=== PATIENT | male | born 1995 | race Caucasian/White ===

== ENCOUNTER 2020-01-16 19:27 | Emergency (ER) | payer OTHER ==
--- NOTE | 2020-01-16 21:25 | ED Physician Documentation ---
History of Present Illness - Stated complaint Stated Complaint: FACIAL LAC - Chief complaint Chief Complaint: Laceration - History obtained from History obtained from: Patient (The patient is a 24-year-old male who presents with laceration to the right eyebrow. Patient reports he was driving a riding lawnmower when he struck his right side of his forehead on a tree. He denies any loss of consciousness denies any head or neck pain no other complaints.) Review of Systems Constitutional: reports: Reviewed and negative Eyes: reports: Reviewed and negative Ears: reports: Reviewed and negative Nose: reports: Reviewed and negative Throat: reports: Reviewed and negative Cardiac: reports: Reviewed and negative Respiratory: reports: Reviewed and negative GI: reports: Reviewed and negative : reports: Reviewed and negative Skin: reports: Laceration (s) Musculoskeletal: reports: Reviewed and negative Neurologic: reports: Reviewed and negative Psychiatric: reports: Reviewed and negative Endocrine: reports: Reviewed and negative Immunocompromised: reports: Reviewed and negative PD PAST MEDICAL HISTORY - Past Medical History Past Medical History: Yes Cardiovascular: None Respiratory: None Neuro: None Endocrine/Autoimmune: None GI: None : None HEENT: None Psych: None Musculoskeletal: None Derm: None - Past Surgical History Past Surgical History: Yes - Allergies Allergies/Adverse Reactions: Allergies Allergy/AdvReac Type Severity Reaction Status Date / Time No Known Drug Allergies Allergy Verified 01/16/20 19:47 - Social History Does the pt smoke?: No Smoking Status: Current every day smoker Does the pt drink ETOH?: Yes - Immunizations Immunizations: TDAP >10years/unknown PD ED PE NORMAL - Vitals Vital signs reviewed: Yes - General General: Alert and oriented X 3, No acute distress, Well developed/nourished - HEENT HEENT: PERRL, Moist mucous membranes - Neck Neck: Supple, no meningeal sign - Cardiac Cardiac: RRR, No murmur, Strong equal pulses - Respiratory Respiratory: Clear bilaterally - Abdomen Abdomen: Normal bowel sounds, Soft, Non tender, Non distended - Derm Derm: Other (Laceration to the right eyebrow x2 first 1 is 2 cmAnd the second 1 is 1 cm.) - Extremities Extremities: No deformity - Neuro Neuro: Alert and oriented X 3 - Psych Psych: Normal mood, Normal affect PD ED PE EXPANDED - HEENT HEENT Visual: 1 - laceration 2 - laceration Results - Vitals Vitals: Vital Signs - 24 hr 01/16/20 01/16/20 19:39 23:36 Temperature 36.6 C Heart Rate 102 H 60 Respiratory 18 16 Rate Blood Pressure 137/79 H 121/60 O2 Saturation 96 100 Oxygen O2 Source Room air Procedures - Laceration (location) Face right Length in cm: 2 Wound type: Linear Neurovascular status: Sensory intact, Motor intact, Vascular intact Anesthesia: Lidocaine 1% with epi, Volume - enter cc (1) Wound Preparation: Irrigated copiously NS, Wound explored Skin layer closure: Nylon, Size #-0 - enter number (5), Sutures - enter # (4) Other: Patient tolerated well, No complications, Neurovascular intact, Dressing applied, Tetanus booster given Complexity: Simple Eyelid right Length in cm: 1 Wound type: Linear Neurovascular status: Sensory intact, Motor intact, Vascular intact Anesthesia: Lidocaine 1% with epi, Volume - enter cc (1) Wound Preparation: Irrigated copiously NS, Wound explored Skin layer closure: Nylon, Size #-0 - enter number (5), Sutures - enter # (2) Other: Patient tolerated well, No complications, Neurovascular intact, Tetanus booster given Complexity: Simple PD MEDICAL DECISION MAKING - ED course Complexity details: considered differential (right eyebrow/forehead laceration. tetanus updated. 2 separate lacerations repaired with good wound edge alignment. no fb identified. wound thouroughly irrigated. ) Departure - Departure Disposition: 01 Home, Self Care Clinical Impression: Laceration of eyebrow, right Qualifiers: Encounter type: initial encounter Qualified Code(s): S01.111A - Laceration without foreign body of right eyelid and periocular area, initial encounter Condition: Stable Instructions: ED Laceration Facial Sutr Tape Follow-Up: Your, doctor [Other] - 01/24/20 Comments: Keep wound clean, dry and protected. Follow-up with your physician for suture removal in 7 to 10 days or return to the emergency department for suture removal. Ice as needed you may take either Tylenol or ibuprofen as needed for pain. Discharge Date/Time: 01/16/20 23:36
[2020-01-16] MEDS ORDERED: BACITRACIN ZINC OINT 1 PACKET TOP STA (22:26)
[2020-01-16] MEDS ORDERED: LIDOCAINE 1%-EPI 1:100000 20 ML MDV SUBQ STA (22:26)
[2020-01-16] MEDS ORDERED: TETANUS/DIPHTHERIA/PERTUSSIS 0.5 ML SYRINGE IM ONE (22:53)
[2020-01-16 23:38] VITALS: BP 121/60
== END 2020-01-16 23:36 | disposition home or self-care (01) ==
LOC: ED 19:27
DX: S01.111A Laceration without foreign body of right eyelid and periocular area, initial encounter (principal); W22.09XA Striking against other stationary object, initial encounter; Y93.H2 Activity, gardening and landscaping; F17.200 Nicotine dependence, unspecified, uncomplicated
CPT/HCPCS: 12013; 90471; 90715; 99283; A9270

== ENCOUNTER 2022-01-26 12:03 | Outpatient (CLI) | payer OTHER ==
--- NOTE | 2022-01-26 15:52 | XRAY Report ---
PROCEDURE: Hip w/Pelvis 2-3V LT INDICATIONS: LEFT HIP PAIN TECHNIQUE: AP pelvis with lateral view(s) of the left hip(s). COMPARISON: None. FINDINGS: Bones: No fractures or dislocations. Pelvic ring appears intact. No suspicious bony lesions. Soft tissues: The visualized bowel gas pattern is normal. No suspicious soft tissue calcifications. IMPRESSION: Unremarkable left hip radiographs Reviewed by: Darrian Johnson MD on 01/26/2022 2:50 PM [facility] Approved by: Darrian Johnson MD on 01/26/2022 2:50 PM [facility] Station ID: [id number]
== END 2022-01-26 12:04 | disposition home or self-care (01) ==
LOC: DI 12:03
PROVIDERS: ATTEND Student in an Organized Health Care Education/Training Program
DX: M25.552 Pain in left hip (principal)

== ENCOUNTER 2024-03-03 16:12 | Outpatient (CLI) | payer SELFPAY | END 2024-03-03 23:59 | disposition critical access hospital (66) | LOC: EMS 16:12 | DX: T39.312A Poisoning by propionic acid derivatives, intentional self-harm, initial encounter (principal); T48.1X2A Poisoning by skeletal muscle relaxants [neuromuscular blocking agents], intentional self-harm, initial encounter; T51.0X2A Toxic effect of ethanol, intentional self-harm, initial encounter; R53.83 Other fatigue | CPT/HCPCS: A0425; A0429 ==

== ENCOUNTER 2024-03-03 16:33 | Emergency (ER) | payer SELFPAY ==
[2024-03-03 17:00] LABS: BASOPHILS % (AUTO) 0.2 %; EOSINOPHILS # (AUTO) 0.1 10^3/uL (0.0-0.7); EOSINOPHILS % (AUTO) 1.4 %; HCT - HEMATOCRIT 48.7 % (42.0-52.0); HGB - HEMOGLOBIN 16.5 g/dL (14.0-18.0); LYMPHOCYTES # (AUTO) 2.3 10^3/uL (1.5-3.5); LYMPHOCYTES % (AUTO) 26.7 %; MEAN CORPUSCULAR HEMOGLOBIN 32.2 pg (27.0-31.0); MEAN CORPUSCULAR HGB CONC 33.9 g/dL (32.0-36.0); MEAN CORPUSCULAR VOLUME 94.9 fL (80.0-94.0); MEAN PLATELET VOLUME 9.3 fL (7.4-11.4); MONOCYTES # (AUTO) 0.6 10^3/uL (0.0-1.0); MONOCYTES % (AUTO) 7.4 %; NEUTROPHILS # (AUTO) 5.6 10^3/uL (1.5-6.6); NEUTROPHILS % (AUTO) 64.2 %; PLT - PLATELET COUNT 251 10^3/uL (130-450); RED BLOOD COUNT 5.13 10^6/uL (4.70-6.10); RED CELL DISTRIBUTION WIDTH 12.5 % (12.0-15.0); WHITE BLOOD COUNT 8.7 x10^3/uL (4.8-10.8)
[2024-03-03 17:18] LABS: ALBUMIN 4.6 g/dL (3.2-5.5); ALBUMIN/GLOBULIN RATIO 2.3 (1.0-2.2); ALKALINE PHOSPHATASE 52 IU/L (42-121); ALT ALANINE AMINOTRANSFERASE 27 IU/L (10-60); AST ASPARTATE AMINOTRANSFERASE 22 IU/L (10-42); BILIRUBIN,TOTAL 0.5 mg/dL (0.2-1.0); BUN - BLOOD UREA NITROGEN 9 mg/dL (6-20); CALCIUM 9.6 mg/dL (8.5-10.3); CARBON DIOXIDE - CO2 27 mmol/L (21-32); CHLORIDE 103 mmol/L (101-111); CREATININE 0.8 mg/dL (0.6-1.3); GFR - MDRD 115 (>89); GLUCOSE 97 mg/dL (74-104); LIPASE 45 U/L (11-82); POTASSIUM 3.9 mmol/L (3.5-4.5); SODIUM 140 mmol/L (135-145); TOTAL PROTEIN 6.6 g/dL (6.4-8.9)
[2024-03-03 17:23] LABS: ACETAMINOPHEN 67.6 ug/mL
--- NOTE | 2024-03-03 17:23 | ED Physician Documentation ---
PD HPI MHE - Stated complaint Stated Complaint: ETOH/OD - Chief complaint Chief Complaint: MHE - Additional information Additional information: 28-year-old male presents emergency department for suicidal intention. Patient took 10 to 15 tablets of ibuprofen PM and about 12 cyclobenzaprine with 10 to 15 pills of Tylenol multiple beers and shots of vodka. Him and his girlfriend of 7 years recently broke up and he has been having hard time coping he called his mom to take by and she is going to call 911 for a wellness check. RN spoke with poison control, See below. "Poison control called at 1703 Repeat Tylenol at 1930. Ibuprofen-not toxic dose. Will cause n/v. Cyclobensabrine/diphehydramine/etoh-Resp depression risk since combined. Potential sz with diphehydramine, dry mouth, retention, agitation. Benzos as needed if noticed. Supportive care for n/v/dehydration. Watch for QT prolongation, QRS widening. Recommend EKG every 4 hours. QTC greater than 500 treat with mag. QRS Wider than 110, treat with sodium bicarb. 8 hours obs. Call back with 4 hour tylenol level, if above 150-we will treat with acetylcysteine. " Patient does state that he is still feeling suicidal ideation no plan is feeling better now that he is in the emergency department with care. PD PAST MEDICAL HISTORY - Past Medical History Cardiovascular: None Respiratory: None Neuro: None Endocrine/Autoimmune: None GI: None : None HEENT: None Psych: None Musculoskeletal: None Derm: None - Past Surgical History Past Surgical History: Yes - Allergies Allergies/Adverse Reactions: Allergies Allergy/AdvReac Type Severity Reaction Status Date / Time No Known Drug Allergies Allergy Verified 03/03/24 18:05 - Social History Does the pt smoke?: No Smoking Status: Never smoker Does the pt drink ETOH?: Yes - Immunizations Immunizations: TDAP >10years/unknown PD ED PE NORMAL - Vitals Vital signs reviewed: Yes - General General: Alert and oriented X 3, No acute distress, Well developed/nourished - HEENT HEENT: Atraumatic, PERRL - Neck Neck: Supple, no meningeal sign - Cardiac Cardiac: RRR - Respiratory Respiratory: No respiratory distress - Abdomen Abdomen: Normal bowel sounds, Soft - Back Back: No CVA TTP - Derm Derm: Normal color, Warm and dry, No rash PD ED PE EXPANDED - Psych Psych: Intoxicated / AOB, Depressed, Suicidal, Tearful, Withdrawn, Poor eye contact. No: Homicidal, Non verbal, Anxious, Agitated Results - Vitals Vitals: Vital Signs - 24 hr 03/03/24 16:37 Temperature 36.8 C Heart Rate 98 Respiratory 12 Rate Blood Pressure 141/78 H O2 Saturation 97 Oxygen O2 Source Room air - EKG (time done) 1657 EKG releavant findings:: EKG personally interpreted by author of this note. Relevant findings are: Rate: Rate (enter#) (68) Rhythm: NSR Bath: Normal Intervals: Normal MI QRS: Normal Ischemia: ST elevation c/w repol Computer interpretation: Agree with computer 2043 EKG releavant findings:: EKG personally interpreted by author of this note. Relevant findings are: Rate: Rate (enter#) (55) Rhythm: NSR Intervals: Normal MI QRS: Normal Ischemia: Other (Nonspecific T wave abnormalities in the anterior lateral leads) Compare to prior EKG: Unchanged from prior EKG Computer interpretation: Agree with computer - Labs Labs: Laboratory Tests 03/03/24 03/03/24 03/03/24 16:50 16:50 18:19 WBC 8.7 RBC 5.13 Hgb 16.5 Hct 48.7 MCV 94.9 H MCH 32.2 H MCHC 33.9 RDW 12.5 Plt Count 251 MPV 9.3 Neut # (Auto) 5.6 Lymph # (Auto) 2.3 Buchanan # (Auto) 0.6 Eos # (Auto) 0.1 Baso # (Auto) 0.0 Absolute Nucleated RBC 0.00 Nucleated RBC % 0.0 Sodium 140 Potassium 3.9 Chloride 103 Carbon Dioxide 27 Anion Gap 10.0 BUN 9 Creatinine 0.8 Estimated GFR (MDRD) 115 Glucose 97 Calcium 9.6 Total Bilirubin 0.5 AST 22 ALT 27 Alkaline Phosphatase 52 Total Protein 6.6 Albumin 4.6 Globulin 2.0 L Albumin/Globulin Ratio 2.3 H Lipase 45 TSH 1.50 Urine Color YELLOW Urine Clarity CLEAR Urine pH 6.0 Ur Specific Mobile 1.025 Urine Protein NEGATIVE Urine Glucose (UA) NEGATIVE Urine Ketones NEGATIVE Urine Occult Blood NEGATIVE Urine Nitrite NEGATIVE Urine Bilirubin NEGATIVE Urine Urobilinogen 0.2 (NORMAL) Ur Leukocyte Esterase TRACE H Urine RBC 0-5 Urine WBC 4-5 Ur Squamous Epith Cells NONE SEEN Urine Bacteria None Seen Ur Microscopic Review INDICATED Urine Culture Comments INDICATED Salicylates < 1.5 Urine Opiates Screen NEGATIVE Ur Buprenorphine Scrn NEGATIVE Ur Oxycodone Screen NEGATIVE Urine Methadone Screen NEGATIVE Acetaminophen 67.6 H* Ur Barbiturates Screen NEGATIVE Ur Tricyclics Screen NEGATIVE Ur Phencyclidine Scrn NEGATIVE Ur Amphetamine Screen NEGATIVE U Methamphetamines Scrn NEGATIVE U Benzodiazepines Scrn NEGATIVE Urine Cocaine Screen POSITIVE H U Cannabinoids Screen POSITIVE H Ur Drug Screen Comment CUTOFF CONC BELOW: Ethyl Alcohol 139.0 03/03/24 20:40 WBC RBC Hgb Hct MCV MCH MCHC RDW Plt Count MPV Neut # (Auto) Lymph # (Auto) Buchanan # (Auto) Eos # (Auto) Baso # (Auto) Absolute Nucleated RBC Nucleated RBC % Sodium Potassium Chloride Carbon Dioxide Anion Gap BUN Creatinine Estimated GFR (MDRD) Glucose Calcium Total Bilirubin AST ALT Alkaline Phosphatase Total Protein Albumin Globulin Albumin/Globulin Ratio Lipase TSH Urine Color Urine Clarity Urine pH Ur Specific Mobile Urine Protein Urine Glucose (UA) Urine Ketones Urine Occult Blood Urine Nitrite Urine Bilirubin Urine Urobilinogen Ur Leukocyte Esterase Urine RBC Urine WBC Ur Squamous Epith Cells Urine Bacteria Ur Microscopic Review Urine Culture Comments Salicylates Urine Opiates Screen Ur Buprenorphine Scrn Ur Oxycodone Screen Urine Methadone Screen Acetaminophen 56.3 H* Ur Barbiturates Screen Ur Tricyclics Screen Ur Phencyclidine Scrn Ur Amphetamine Screen U Methamphetamines Scrn U Benzodiazepines Scrn Urine Cocaine Screen U Cannabinoids Screen Ur Drug Screen Comment Ethyl Alcohol PD Medical Decision Making - ED course ED course: 28-year-old male presents emergency department for suicidal ideation with intent to hurt self tonight with alcohol, Tylenol, ibuprofen cyclobenzaprine. Patient says that he has no current plan to kill himself but he is still having some passive suicidal ideation and is feeling very hopeless after his girlfriend broke up with him of 7 years. He had 1 episode of nausea and vomiting here in the emergency department and was given some Zofran to help with this and this significantly alleviated his symptoms. He was given 1 L of IV fluids he has had 2 EKGs thus far with no prolonged QT intervals no ST elevation or T wave inversions. Labs have been collected for further evaluation and he has no leukocytosis no anemia electrolytes appear to be normal. He has trace leukocytes but no signs or symptoms of urinary tract infection so will not be treating for urinary tract infection at this point in time. Urine drug screen is positive for cannabinoids, cocaine and Tylenol level was originally 67.6 but repeat Tylenol level was found to be 56.3 so it is trending down and patient will not likely appear to need some acetylcysteine. Alcohol level is 139. We will repeat 1 more EKG in a couple hours according to recommendations of poison control and patient will then need to metabolize and sober up until he is able to be cleared for any evaluation with telemetry psych or social work for most likely inpatient hospitalization for his suicide attempt. Patient says that he has never had a suicide attempt that he can remember this is his first time. Report given to oncoming doctor due to change of shift he will be further managing the patient's care. Departure - Departure Forms: PCP List
[2024-03-03 17:24] LABS: SALICYLATE < 1.5 mg/dL
[2024-03-03] MEDS: SODIUM CHLORIDE 0.9% 1,000 ML IV ONE (17:50)
[2024-03-03 18:26] LABS: BILIRUBIN,URINE NEGATIVE (NEGATIVE); GLUCOSE, URINE (UA) NEGATIVE (NEGATIVE); KETONES,URINE (UA) NEGATIVE (NEGATIVE); LEUKOCYTE ESTERASE, URINE TRACE (NEGATIVE); NITRITE,URINE NEGATIVE (NEGATIVE); OCCULT BLOOD,URINE NEGATIVE (NEGATIVE); PROTEIN,URINE NEGATIVE (NEGATIVE); UROBILINOGEN,URINE 0.2 (NORMAL) E.U./dL (NORMAL)
[2024-03-03 18:38] LABS: CLARITY,URINE CLEAR (CLEAR)
[2024-03-03 18:40] LABS: AMPHETAMINE SCREEN,URINE NEGATIVE (NEGATIVE); BACTERIA,URINE None Seen /HPF (None Seen); BARBITURATE SCREEN,UR NEGATIVE (NEGATIVE); BENZODIAZEPINES SCREEN, URINE NEGATIVE (NEGATIVE); BUPRENORPHINE SCREEN, URINE NEGATIVE (NEGATIVE); COCAINE SCREEN URINE POSITIVE (NEGATIVE); METHADONE SCREEN, URINE NEGATIVE (NEGATIVE); METHAMPHETAMINES SCREEN, URINE NEGATIVE (NEGATIVE); OPIATE SCREEN, URINE NEGATIVE (NEGATIVE); OXYCODONE SCREEN, URINE NEGATIVE (NEGATIVE); RBC,URINE 0-5 /HPF (0-5); SQUAMOUS EPITHELIAL CELL,UR NONE SEEN (<= Few); THC CANNABINOID SCREEN, URINE POSITIVE (NEGATIVE); TRICYCLIC ANTIDEPRESSANT,URINE NEGATIVE (NEGATIVE)
[2024-03-03] MEDS: ONDANSETRON 4 MG/2 ML VIAL IVP STA (21:52)
[2024-03-04 01:05] VITALS: O2SAT 99
[2024-03-04 02:01] LABS: INFLUENZA A- RESP PCR PANEL NOT DETECTED; INFLUENZA B - RESP PCR PANEL NOT DETECTED; RSV- RESP PCR PANEL NOT DETECTED; SARS-CoV-2 -RESP PCR PANEL NOT DETECTED
--- NOTE | 2024-03-04 15:22 | ED Physician Documentation ---
ED Addendum - Addendum Addendum: 03/04/24 15:21 The patient was interviewed by social work and also had a telepsych. Conclusion from telepsychiatry was the patient was at high risk and recommended inpatient. Social work talked with him and he was not amenable to voluntary and he was also withdrawn and not really safety planning for outpatient either. DCR was involved in send he, DCR on-call, felt the patient was at risk for self-harm and placed him in detainment. They are looking for a bed available.
[2024-03-04 17:31] VITALS: BP 152/78
[2024-03-04] MEDS: NICOTINE 14 MG PATCH TOP STA (18:07)
[2024-03-04] MEDS: LORazepam 1 MG TABLET PO STA (18:08)
== END 2024-03-04 19:54 ==
LOC: EDUNIT# → ED 16:33
DX: R45.851 Suicidal ideations (principal); T39.312A Poisoning by propionic acid derivatives, intentional self-harm, initial encounter; T39.1X2A Poisoning by 4-Aminophenol derivatives, intentional self-harm, initial encounter; T48.1X2A Poisoning by skeletal muscle relaxants [neuromuscular blocking agents], intentional self-harm, initial encounter; T51.0X2A Toxic effect of ethanol, intentional self-harm, initial encounter; F10.929 Alcohol use, unspecified with intoxication, unspecified; Y90.6 Blood alcohol level of 120-199 mg/100 ml; F33.2 Major depressive disorder, recurrent severe without psychotic features; R11.2 Nausea with vomiting, unspecified
CPT/HCPCS: 36415; 80053; 80143; 80179; 80306; 81001; 82077; 83690; 84443; 85025; 87086; 87637; 93005; 96374; 99285; A9270; G0427; J8499; Q3014; 81003